=== PATIENT | female | born 1940 | race Caucasian/White ===

== ENCOUNTER 2020-11-21 12:42 | Emergency (ER) | payer MEDICARE, SELFPAY ==
--- NOTE | ~2020-11-21 | XR_ITS ---
EXAMINATION: XR CHEST CLINICAL INFORMATION: Weakness COMPARISON: None TECHNIQUE: Frontal view of the chest was obtained. FINDINGS: The lungs are well-expanded and clear acute process. The heart size and pulmonary vascular is normal. There is mitral valve annular calcification. There are surgical marcelo in the epigastric region from previous intervention. No gross bony abnormality seen. XR/XR chest 1V IMPRESSION: No acute pulmonary process.
--- NOTE | 2020-11-21 12:46 | ED_ITS ---
HPI - Weakness General Chief complaint: Weakness Stated complaint: general weakness Source: patient Mode of arrival: ambulatory Limitations: no limitations History of Present Illness HPI Narrative: 80-year-old female presents via EMS for weakness. Patient was discharged from a senior living facility this morning, was unable to make it inside of her home. Her son had to carry her from the car to the house. Son called EMS to have her evaluated. MD Complaint: generalized weakness Onset (ago): unknown Duration: constant Location: generalized Severity scale (1-10): 7 Relieving factors: none Exacerbating factors: movement Associated symptoms: denies other symptoms Related Data Home Medications Medication Instructions Recorded Confirmed aspirin [Aspir-81] 81 mg PO DAILY 11/21/20 11/21/20 atorvastatin 40 mg PO BEDTIME 11/21/20 11/21/20 cholecalciferol (vitamin D3) 25 mcg PO DAILY 11/21/20 11/21/20 fluoxetine 1 cap PO DAILY 11/21/20 11/21/20 glucosamine-chondroitin [Osteo 1 tab PO DAILY 11/21/20 11/21/20 Bi-Flex] levothyroxine 1 tab PO DAILY 11/21/20 11/21/20 Allergies Allergy/AdvReac Type Severity Reaction Status Date / Time No Known Allergies Allergy Verified 11/21/20 12:49 Review of Systems Review of Systems: Constitutional: Positive weakness, No Fever, No Chills ENT/Mouth: No Ear Pain, No Hoarseness, No sore throat Eyes: No Eye Pain, No Swelling, No Redness, No Foreign Body Cardiovascular: No Chest Pain, No SOB Respiratory: No Cough, No Dyspnea Gastrointestinal: No Nausea, No Vomiting, No Diarrhea, No abdominal Pain Genitourinary: No Dysuria, No Hematuria Musculoskeletal: No joint pain, No Myalgias, No Joint Swelling Skin: No Skin lacerations, No rash Neuro: No Weakness, No Numbness, No Paresthesias, No Loss of Consciousness, No Dizziness, No Headache Psych: No Anxiety/Panic, No Depression Heme/Lymph: no easy bruising, no Lymphadenopathy Endocrine: No Polyuria, No Polydipsia Yes all other systems are reviewed and are negative [facility] Past Medical History Attestation statement: The following information was validated with the patient. Source: old records reviewed Social History Social History Advance Directives: Yes Advance Directives on File: Yes Advance Directives Date on File: 11/21/20 Physical Exam Vital Signs: Vital Signs: Last Vital Signs Temp 99 F 11/21/20 20:38 Pulse 59 11/21/20 20:38 Resp 12 11/21/20 20:38 BP 124/66 11/21/20 20:38 Pulse Ox 97 11/21/20 20:38 Body Mass Index 14.5 Appearance: Alert. Oriented X3. Moderate distress. Frail, thin Eyes: Pupils equal, round and reactive to light. Left eye drooping per baseline ENT: Pharynx normal. Neck: Normal inspection. Neck supple. CVS: Normal heart rate and rhythm. Pulses normal. Respiratory: No respiratory distress. Breath sounds normal. Abdomen: Soft and nontender. Skin: Skin warm and dry. Normal skin color. Normal skin turgor. Extremities: Right-sided weakness per baseline Neuro: No motor deficit. No sensory deficit. Course Course Course Narrative: 80-year-old female discharged from a senior living facility home earlier today presents to the emergency department for weakness. EMS stated that the patient was too weak to walk, that the son had to carry her inside the home. 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 Will order basic labs, EKG, and urinalysis. 12:56 p.m. nursing informed this MACHINE DYER that temperature is 100.6? rectally, I did add lactic, cultures, straight cath for urine and Tylenol. Patient's vital signs do not indicate sepsis at this time. The return of lab values will determine fluid resuscitation rate. 2:35 p.m. labs have returned, no white count 10.0, lactic 1.4, urinalysis suspicious for UTI. Will give IV ceftriaxone. BUN elevated at 32, could possibly be related to dehydration. Will resuscitate with 1 L fluids. 9:00 p.m. physician observation started, sign-out to Bert MACHINE DYER. MDM - Weakness Differential Diagnosis Differential diagnosis: Likely UTI, sepsis and dehydration Medical Records Attestation: I reviewed the patient's medical records. Lab Data Attestation: I reviewed the patient's lab results. Result diagrams: 11/21/20 13:42 06/25/21 13:42 Labs: Lab Results 11/21/20 11/21/20 11/21/20 Range/Units 13:02 13:42 13:42 WBC 10.0 (4.8-10.8) X10*3/uL RBC 4.49 (4.20-5.50) X10*6/uL Hgb 13.7 (12.0-16.0) g/dl Hct 42.4 (37-47) % MCV 94.4 (80-98) fL MCH 30.5 (27.0-33.0) pg MCHC 32.3 (31.0-35.0) g/dl RDW 14.6 (11.0-16.0) % Plt Count 279 (160-400) X10*3/uL MPV 9.5 (9.4-12.3) fL Immature Gran % (Auto) 0.3 (0.0-0.4) % Neut % (Auto) 75.7 H (45-73) % Lymph % (Auto) 14.9 L (20-40) % Beauregard % (Auto) 8.1 (2-11) % Eos % (Auto) 0.6 (0-4) % Baso % (Auto) 0.4 (0-2) % Lymph # (Auto) 1.5 (1.2-4.9) X10*3/uL Beauregard # (Auto) 0.8 (0.1-1.2) X10*3/uL Eos # (Auto) 0.1 (0.0-0.4) X10*3/uL Baso # (Auto) 0.0 (0.0-0.2) X10*3/uL Abs Immat Gran (auto) 0.03 (0.00-0.03) X10*3/uL Absolute Neuts (auto) 7.6 (2.0-8.3) X10*3/uL Absolute Nucleated RBC 0.000 (0.0-0.012) X10*3/uL Nucleated RBC % (auto) 0.0 (0.0-0.2) /100WBC Sodium 140 (135-145) mmol/L Potassium 4.3 (3.3-5.1) mmol/L Chloride 105 (96-108) mmol/L Carbon Dioxide 23 (22-29) mmol/L Anion Gap 16 (12-20) BUN 32 H (9-16) mg/dL Creatinine 0.65 (0.5-1.4) mg/dL Estim Creat Clear Calc 37.9 Estimated GFR > 60 Random Glucose 109 (60-115) mg/dL Lactic Acid (0.5-2.0) mmol/L Calcium 9.5 (8.4-10.2) mg/dL Troponin I High Sens (<3.5-17.0) ng/L Urine Color YELLOW Urine Appearance HAZY Urine pH 6.0 (5.0-8.0) Ur Specific Montezuma >= 1.030 H (1.005-1.025) Urine Protein NEG (NEG-TRACE) MG/DL Urine Glucose (UA) NEG (NEG) MG/DL Urine Ketones NEG (NEG) MG/DL Urine Blood 2+ H (NEG) Urine Nitrite POS H (NEG) Ur Leukocyte Esterase NEG (NEG) Urine RBC 1-4 (0) /HPF Urine WBC 5-9 H (0-4) /HPF Ur Squamous Epith Cells NONE /LPF Urine Bacteria 3+ /LPF COVID-19 (JUANA) (Negative) COVID-19 Clin Com 11/21/20 11/21/20 11/21/20 Range/Units 13:42 13:42 17:41 WBC (4.8-10.8) X10*3/uL RBC (4.20-5.50) X10*6/uL Hgb (12.0-16.0) g/dl Hct (37-47) % MCV (80-98) fL MCH (27.0-33.0) pg MCHC (31.0-35.0) g/dl RDW (11.0-16.0) % Plt Count (160-400) X10*3/uL MPV (9.4-12.3) fL Immature Gran % (Auto) (0.0-0.4) % Neut % (Auto) (45-73) % Lymph % (Auto) (20-40) % Beauregard % (Auto) (2-11) % Eos % (Auto) (0-4) % Baso % (Auto) (0-2) % Lymph # (Auto) (1.2-4.9) X10*3/uL Beauregard # (Auto) (0.1-1.2) X10*3/uL Eos # (Auto) (0.0-0.4) X10*3/uL Baso # (Auto) (0.0-0.2) X10*3/uL Abs Immat Gran (auto) (0.00-0.03) X10*3/uL Absolute Neuts (auto) (2.0-8.3) X10*3/uL Absolute Nucleated RBC (0.0-0.012) X10*3/uL Nucleated RBC % (auto) (0.0-0.2) /100WBC Sodium (135-145) mmol/L Potassium (3.3-5.1) mmol/L Chloride (96-108) mmol/L Carbon Dioxide (22-29) mmol/L Anion Gap (12-20) BUN (9-16) mg/dL Creatinine (0.5-1.4) mg/dL Estim Creat Clear Calc Estimated GFR Random Glucose (60-115) mg/dL Lactic Acid 1.4 (0.5-2.0) mmol/L Calcium (8.4-10.2) mg/dL Troponin I High Sens 5.0 (<3.5-17.0) ng/L Urine Color Urine Appearance Urine pH (5.0-8.0) Ur Specific Montezuma (1.005-1.025) Urine Protein (NEG-TRACE) MG/DL Urine Glucose (UA) (NEG) MG/DL Urine Ketones (NEG) MG/DL Urine Blood (NEG) Urine Nitrite (NEG) Ur Leukocyte Esterase (NEG) Urine RBC (0) /HPF Urine WBC (0-4) /HPF Ur Squamous Epith Cells /LPF Urine Bacteria /LPF COVID-19 (JUANA) Negative (Negative) COVID-19 Clin Com See Note Imaging Data Chest x-ray: Attestation: I personally reviewed and interpreted this imaging study as follows: Radiologist's impression: EXAMINATION: XR CHEST CLINICAL INFORMATION: Weakness COMPARISON: None TECHNIQUE: Frontal view of the chest was obtained. FINDINGS: The lungs are well-expanded and clear acute process. The heart size and pulmonary vascular is normal. There is mitral valve annular calcification. There are surgical marcelo in the epigastric region from previous intervention. No gross bony abnormality seen. XR/XR chest 1V IMPRESSION: No acute pulmonary process. ECG Data Attestation: I personally reviewed and interpreted this ECG as follows: ECG interpretation date: 11/21/20 ECG interpretation time: 13:10 Prior ECG tracings: not available for review Interpretation: Vent. rate 60 BPM IL interval 176 ms QRS duration 74 ms QT/QTc 456/456 ms P-R-T axes 47 -50 51 Normal sinus rhythm Possible Left atrial enlargement Left anterior fascicular block Cannot rule out Inferior infarct (masked by fascicular block?) , age undetermined Abnormal ECG No previous ECGs available Discharge Plan Discharge Prescriptions: No Action atorvastatin 40 mg Tablet 40 mg PO BEDTIME RF: 0 aspirin [Aspir-81] 81 mg Tablet,Delayed Release (Dr/Ec) 81 mg PO DAILY RF: 0 levothyroxine 50 mcg tablet 1 tab PO DAILY RF: 0 fluoxetine 20 mg capsule 1 cap PO DAILY RF: 0 glucosamine-chondroitin [Osteo Bi-Flex] 250-200 mg Tablet 1 tab PO DAILY RF: 0 cholecalciferol (vitamin D3) 25 mcg (1,000 unit) Tablet 25 mcg PO DAILY RF: 0
[2020-11-21 12:49] VITALS: BP 135/82; BP 139/77; PULSE 67; PULSE 68; RESP 14; TEMP 38; O2SAT 94; O2SAT 96; BMI 14.5
--- NOTE | 2020-11-21 12:49 | ECG_ITS ---
Test Reason : WEAKNESS Blood Pressure : / mmHG Vent. Rate : 060 BPM Atrial Rate : 060 BPM P-R Int : 176 ms QRS Dur : 074 ms QT Int : 456 ms P-R-T Axes : 047 -50 051 degrees QTc Int : 456 ms Normal sinus rhythm Possible Left atrial enlargement Left anterior fascicular block Abnormal ECG No previous ECGs available Referred By: Jolanta Montalvo Electronically Signed By:Mick Santos
[2020-11-21 12:54] VITALS: TEMP 38.1
[2020-11-21 13:10] LABS: Glucose Urine UA NEG (NEG); Leukocyte Esterase Urine NEG (NEG); Nitrite Urine POS (NEG); Specific Gravity - Urine >= 1.030 (1.005-1.025); UACC Culture Trigger YES; Urine Blood 2+ (NEG); Urine Ketones NEG (NEG); Urine Protein NEG (NEG-TRACE)
[2020-11-21 13:11] LABS: Appearance Urine HAZY; Color Urine YELLOW
[2020-11-21 13:18] LABS: Bacteria Urine 3+ /LPF
[2020-11-21 13:53] LABS: MANUAL DIFF FLAG NO
[2020-11-21 13:55] LABS: Basophils Percent Auto 0.4 % (0-2); Eosinophils Absolute Auto 0.1 X10*3/uL (0.0-0.4); Eosinophils Percent Auto 0.6 % (0-4); Hematocrit 42.4 % (37-47); Hemoglobin 13.7 g/dl (12.0-16.0); Imm Gran Abs Auto 0.03 X10*3/uL (0.00-0.03); Imm Gran Pct Auto 0.3 % (0.0-0.4); Lymphocytes Absolute Auto 1.5 X10*3/uL (1.2-4.9); Lymphocytes Percent Auto 14.9 % (20-40); Mean Corpuscular HGB Conc 32.3 g/dl (31.0-35.0); Mean Corpuscular Hemoglobin 30.5 pg (27.0-33.0); Mean Corpuscular Volume 94.4 fL (80-98); Mean Platelet Volume 9.5 fL (9.4-12.3); Monocytes Absolute Auto 0.8 X10*3/uL (0.1-1.2); Monocytes Percent Auto 8.1 % (2-11); Neutrophils Absolute Auto 7.6 X10*3/uL (2.0-8.3); Neutrophils Percent Auto 75.7 % (45-73); Platelet Count 279 X10*3/uL (160-400); Red Blood Count 4.49 X10*6/uL (4.20-5.50); Red Cell Distribution Width 14.6 % (11.0-16.0)
[2020-11-21 14:14] LABS: Lactic Acid 1.4 mmol/L (0.5-2.0)
[2020-11-21 14:20] LABS: Anion Gap 16 (12-20); Blood Urea Nitrogen 32 mg/dL (9-16); Calcium 9.5 mg/dL (8.4-10.2); Carbon Dioxide 23 mmol/L (22-29); Chloride 105 mmol/L (96-108); Creatinine Clr Calc Pharmacy 37.9; Estimated Glomerular Filt Rate > 60; Glucose Random 109 mg/dL (60-115); Potassium 4.3 mmol/L (3.3-5.1); Sodium 140 mmol/L (135-145)
--- NOTE | 2020-11-21 14:30 | PC.NURSE ---
Pt alert, oriented to self. Per ems pt was discharged from a LTC facility sometime this week. Pt presents to the ed with R sided weakness and L sided eye drooping post aneurysm. Labs were obtained, urine via straight cath, Iv line was replaced, meds given as documented, fluid hung. No apparent distress noted, pt resting quietly. Physical therapy at bedside.
[2020-11-21] MEDS: cefTRIAXone sodium 1 GM in 0.9 % Sodium Chloride 50 ML IV (14:56)
[2020-11-21] MEDS: 0.9 % Sodium Chloride 1,000 ML 999 ML IVCONT (15:17)
[2020-11-21 15:20] VITALS: BP 141/74; PULSE 67; RESP 16; TEMP 37.9; O2SAT 95
[2020-11-21] MEDS: Acetaminophen 325 MG TABLET 650 MG PO (15:59)
--- NOTE | 2020-11-21 16:03 | MHC.CM.ED ---
Addendum entered by Peggy Rincon 11/21/20 16:18: Patient received 2nd Pfizer on 07/08/20. Original Note: Received case management consult from Jolanta LIZARRAGA. Patient was at [facility] for a CVA. Patient was discharged to [facility] and discharged home on 11/20. Patient fell while at home. Spoke with patient's son/hcp, Mikey via telephone at [phone]. Mikey requesting referrals to: 1) [facility] and 2) [facility]. Referrals made via [employer]. Mikey is aware patient will be here overnight. Continue to monitor for d/c needs.
[2020-11-21 16:26] VITALS: BP 128/90; PULSE 94; RESP 20; O2SAT 97
--- NOTE | 2020-11-21 16:28 | PC.NURSE ---
16 fr with 10cc balloon zapien catheter inserted without difficulty. 1100cc blood tinged urine noted in zapien bag. Some small clots from penis during insertion. Pt pre-medicated prior to insertion, tolerated well. Pt resting quietly at this time, no apparent distress.
[2020-11-21 18:17] LABS: COVID-19 Test Negative (Negative)
[2020-11-21 20:38] VITALS: BP 124/66; PULSE 59; RESP 12; TEMP 37.2; O2SAT 97
[2020-11-21 22:54] LABS: Anion Gap 13 (12-20); Blood Urea Nitrogen 27 mg/dL (9-16); Calcium 8.9 mg/dL (8.4-10.2); Carbon Dioxide 25 mmol/L (22-29); Chloride 107 mmol/L (96-108); Creatinine Clr Calc Pharmacy 40.4; Estimated Glomerular Filt Rate > 60; Glucose Random 105 mg/dL (60-115); Potassium 3.9 mmol/L (3.3-5.1); Sodium 141 mmol/L (135-145)
[2020-11-22 06:00] VITALS: BP 140/76; PULSE 64; RESP 15; TEMP 37.2; O2SAT 97
[2020-11-22] MEDS: Levothyroxine Sodium 50 MCG TABLET PO (06:39)
[2020-11-22] MEDS: FLUoxetine HCl 20 MG CAPSULE PO (10:48)
[2020-11-22] MEDS: Aspirin Enteric Coated 81 MG TABLET.DR PO (10:48)
[2020-11-22] MEDS: Cholecalciferol (Vitamin D3) 25 MCG TABLET PO (10:48)
--- NOTE | 2020-11-22 11:10 | MHC.CM.PN ---
Addendum entered by Kelly Costa RN 11/22/20 11:34: CM CONTACTED [facility] TO SET UP ANTIC TRANSPORT FOR PT, PER [facility] PT TRANPORT ON WILL CALL AND CM/ED TO CONTACT [facility] [phone] ONCE TIME IS VERIFIED. Original Note: CM CONTACTED PT'S SON JACQUELINE AT 11:05AM [phone] TO VERIFY PT WAS OK TO GO TO [facility] AFTER BEING DECLINED AT [facility] AND W/NO AVAILABLE BED AT [facility], CM HAS REQUESTED [facility] GO FOR AUTH AND PT WILL D/C ONCE AUTH IS OBTAINED, NSG IS AWARE.
--- NOTE | 2020-11-22 12:56 | MHC.CM.PN ---
INS AUTH OPTAINED, PT DISCHARGING AT 3PM TO [facility], [facility] VERIFIED TIME OF TRANSPORT, PT'S SON JACQUELINE CONTACTED AT 12:56PM AND AGREEABLE TO PLAN. NSG/ED PROVIDER AWARE.
--- NOTE | 2020-11-22 13:05 | PC.NURSE ---
PT CHANGED AND REPOSITIONED IN BED, TOLERATING PO, NEEDS ASSISTANCE WITH FEEDING
[2020-11-22 15:04] VITALS: BP 107/58; PULSE 67; RESP 15; TEMP 36.5; O2SAT 95
== END 2020-11-22 15:42 | disposition home or self-care (01) ==
PROVIDERS: Nurse Practitioner Family; Emergency Provider Internal Medicine
DX: N39.0 Urinary tract infection, site not specified (principal); R53.1 Weakness; R50.9 Fever, unspecified; Z20.822 Contact with and (suspected) exposure to COVID-19
CPT/HCPCS: 36415; 51701; 71045; 80048; 81001; 81003; 83605; 84484; 85025; 87040; 87086; 87088; 87186; 87635; 93005; 96361; 96365; 96372; 97163; 99285; J0696